=== PATIENT | female | born 1955 | race Caucasian/White ===

== ENCOUNTER 2018-07-13 07:42 | Emergency (ER) | payer MEDICAID ==
[2018-07-13 08:03] VITALS: RESP 18; BMI 32.9
[2018-07-13] MEDS ORDERED: Silver Sulfadiazine 1% Cream (25 gm) TP STA ×2 (08:31→08:34)
[2018-07-13] MEDS ORDERED: TDAP Vaccine 0.5 mL Syr IM ONE (08:34)
--- NOTE | 2018-07-13 08:38 | ED PDOC ---
Arrival/HPI - General Chief Complaint: Burn Time Seen by Provider: 07/13/18 08:14 Historian: Patient, Family (son) - History of Present Illness Narrative History of Present Illness (Text): 07/13/18 08:34 A 63 year old female, whose past medical history includes leukemia, who is accompanied by son (translates for patient in Romansh), presents to the emergency department complaining of burn to left upper thigh at 05:00. Patient reports she was burned after accidentally spilling tea. Per son, patient was walking in the house with the lights off carrying the tea, and bumped into the wall, resulting in spilling the tea onto left thigh. Per son: no hx of low WBC counts or neutropenia. No active chemo currently. Patient denies any falls, head trauma, other notable injuries, or any other complaints at this time. PMD: Located in [place] 07/13/18 10:19 07/13/18 10:19 Time/Duration: Other (05:00) Symptom Onset: Sudden Symptom Course: Unchanged Past Medical History - Provider Review Nursing Documentation Reviewed: Yes - Cardiac Hx Cardiac Disorders: No - Pulmonary Hx Respiratory Disorders: No - Neurological Hx Neurological Disorder: No - HEENT Hx HEENT Disorder: No - Renal Hx Renal Disorder: No - Endocrine/Metabolic Hx Endocrine Disorders: No - Hematological/Oncological Hx Blood Disorders: Yes Hx Leukemia: Yes - Integumentary Hx Dermatological Disorder: No - Musculoskeletal/Rheumatological Hx Musculoskeletal Disorders: No - Gastrointestinal Hx Gastrointestinal Disorders: Yes - Genitourinary/Gynecological Hx Genitourinary Disorders: No - Psychiatric Hx Psychophysiologic Disorder: No Hx Substance Use: No - Surgical History Other/Comment: abdominal biopsy Family/Social History - Physician Review Nursing Documentation Reviewed: Yes Family/Social History: No Known Family HX Smoking Status: Never Smoked Hx Alcohol Use: No Hx Substance Use: No Allergies/Home Meds Allergies/Adverse Reactions: Allergies No Known Allergies Allergy (Verified 07/13/18 08:06) Review of Systems - Review of Systems Constitutional: Normal. absent: Other (no falls/head trauma/any other notable injuries.) Eyes: Normal ENT: Normal Respiratory: Normal Cardiovascular: Normal Gastrointestinal: Normal Genitourinary Female: Normal Musculoskeletal: Normal Skin: Other (burn to left thigh) Endocrine: Normal Hemo/Lymphatic: Normal Psychiatric: Normal Physical Exam Vital Signs Reviewed: Yes Vital Signs Temp Pulse Resp BP Pulse Ox 07/13/18 08:02 98.7 F 73 18 125/76 98 Temperature: Afebrile Blood Pressure: Normal Pulse: Regular Respiratory Rate: Normal Appearance: Positive for: Well-Appearing, Non-Toxic, Comfortable Pain Distress: None Mental Status: Positive for: Alert and Oriented X 3 - Systems Exam Head: Present: Atraumatic, Normocephalic Pupils: Present: PERRL Extroacular Muscles: Present: EOMI Conjunctiva: Present: Normal Mouth: Present: Moist Mucous Membranes Neck: Present: Normal Range of Motion Respiratory/Chest: Present: Clear to Auscultation, Good Air Exchange. No: Respiratory Distress, Accessory Muscle Use Cardiovascular: Present: Regular Rate and Rhythm, Normal S1, S2. No: Murmurs Abdomen: No: Tenderness, Distention, Peritoneal Signs Back: Present: Normal Inspection Upper Extremity: Present: Normal Inspection. No: Cyanosis, Edema Lower Extremity: Present: Normal Inspection, Neurovascularly Intact, Capillary Refill < 2 s. No: Edema Neurological: Present: GCS=15, CN II-XII Intact, Speech Normal Skin: Present: Other (1st-2nd degree burn to anterior left thigh, 2% TBSA.) Psychiatric: Present: Alert, Oriented x 3, Normal Insight, Normal Concentration Medical Decision Making ED Course and Treatment: 07/13/18 08:36 Impression: 63 year old female with left thigh burn. Physical exam shows lower extremities neurovascularly intact; 1st-2nd degree burn, left anterior thigh 2% TBSA; no other acute findings on examination. No circumferential shine. To hard compartments. Pt does not remember last tetanus. Plan: -- Liquid Diet -- Tylenol -- Silver Sulfadiazine -- Boostrix Vaccine -- Reassess and disposition Progress Notes: 07/13/18 08:37 Patient refuses IV fluids and want PO fluids only. 07/13/18 09:41 Well appearing in No distress, wound dressed by RN and silvadene+tdap given will d/c home with return indications and follow up- pt requesting addiontal silvadene, will rx. - Medication Orders Current Medication Orders: Discontinued Medications Acetaminophen (Tylenol 325mg Tab) 650 mg PO STAT STA Stop: 07/13/18 08:32 Last Admin: 07/13/18 08:47 Dose: 650 mg MAR Pain/Vitals Document 07/13/18 08:47 GIBSON (Rec: 07/13/18 08:47 GIBSON [id number]) Pain Reassessment Is This A Pain ReAssessment? No Sleep Is patient sleeping during reassessment? No Presence of Pain Presence of Pain Yes Pain Scale Used Pain Scale Used Numeric Location Intensity 5 Scale Used Numeric Silver Sulfadiazine (Silvadene 1% 25 Gm) 0 gm TP STAT STA Stop: 07/13/18 08:35 Last Admin: 07/13/18 08:46 Dose: 25 gm Tetanus/Reduced Diphtheria/Acell Pertussis (Boostrix Vaccine Inj) 0.5 ml IM .ONCE ONE Stop: 07/13/18 08:35 Last Admin: 07/13/18 08:46 Dose: 0.5 ml - Scribe Statement The provider has reviewed the documentation as recorded by the Annamarie Lezama Provider Scribe Attestation: All medical record entries made by the Scribkevin were at my direction and personally dictated by me. I have reviewed the chart and agree that the record accurately reflects my personal performance of the history, physical exam, medical decision making, and the department course for this patient. I have also personally directed, reviewed, and agree with the discharge instructions and disposition. Disposition/Present on Arrival - Present on Arrival Any Indicators Present on Arrival: No History of DVT/PE: No History of Uncontrolled Diabetes: No Urinary Catheter: No History of Decub. Ulcer: No History Surgical Site Infection Following: None - Disposition Have Diagnosis and Disposition been Completed?: Yes Diagnosis: Burn Disposition: HOME/ ROUTINE Disposition Time: 09:29 Patient Problems: Current Active Problems Problem Status Onset Burn Acute Condition: GOOD Discharge Instructions (ExitCare): Skin Shine, Preventing Shine, Skin Shine (DC ) Additional Instructions: ULBNA SLAUGHTER, thank you for letting us take care of you today. Your provider was Danis Galindo and you were treated for BURN ON LEFT LEG. The emergency medical care you received today was directed at your acute symptoms. If you were prescribed any medication, please fill it and take as directed. It may take several days for your symptoms to resolve. Return to the Emergency Department if your symptoms worsen, do not improve, or if you have any other problems. Please contact your doctor or call one of the physicians/clinics you have been referred to that are listed on the Patient Visit Information form that is included in your discharge packet. Bring any paperwork you were given at discharge with you along with any medications you are taking to your follow up visit. Our treatment cannot replace ongoing medical care by a primary care provider outside of the emergency department. Thank you for allowing the [facility] team to be part of your care today. If you had an X-Ray or CT scan: A Radiologist will review the ED reading if any change in treatment is needed we will contact you. If you had a blood, urine, or wound culture: It will take several days for the results, if any change in treatment is needed we will contact you. If you had an STI test: It will take 48 hours for the results. Please call after 1 week if you have not heard back. Prescriptions: Silver Sulfadiazine 1% 25 gm [Silvadene 1% 25 gm] 25 gm TP QAM #1 cream Referrals: [facility] [Other] - Follow up with primary FAMILY PROVIDER,NO [Primary Care Provider] - Follow up with primary Aubrie Leal MD [Medical Doctor] - Follow up with primary Forms: [employer] ([employer])
[2018-07-13 09:42] VITALS: BP 113/82; PULSE 65; TEMP 98.5; O2SAT 99
== END 2018-07-13 09:43 | disposition home or self-care (01) ==
LOC: ED 07:42 → MERGE 07:42 → ED 09:43
DX: T24.212A Burn of second degree of left thigh, initial encounter (principal); X10.0XXA Contact with hot drinks, initial encounter; Z23 Encounter for immunization